=== PATIENT | female | born 1955 | race Caucasian/White ===

== ENCOUNTER → 2016-09-22 | Outpatient (CLI) | payer BC ==
--- NOTE | 2016-09-22 16:16 | MA ---
Screening Digital Mammogram With iCAD Analysis Reason for Examination: Routine screening. A sister was diagnosed with breast cancer in her 40s, her mother in her 50s and a cousin in her 60s. Breast parenchymal density: Type C; Heterogeneously dense. Technique: Four views of each breast are obtained including CC and oblique lateral Law (implant di splaced) and non-Law (implant not displaced) views. Images were reviewed using the iCAD computer a ided detection system. Comparison: September 2015, September 2014, September 2013, August 2012, August 2011, August 2010. Findings: Breast implants are in place bilaterally. iCAD is reviewed.No suspicious areas are identifi ed. There has been no significant change in the appearance of either breast. Breast implants diminish the sensitivity of mammography. Vascular calcifications are noted. Impression: Negative mammogram. BI-RADS 1. Recommendation: Routine screening is recommended in one year as long as physical examination is negat solomon. [facility] will send a result letter to the patient. Negative mammography should not preclude additional workup of a clinically suspicious finding. The patient's information is entered into a reminder system with a target due date for her next mammo gram.
== END ==
LOC: BRMIMAGING 14:51
DX: Z12.31 Encounter for screening mammogram for malignant neoplasm of breast (principal); Z80.3 Family history of malignant neoplasm of breast
CPT/HCPCS: G0202